=== PATIENT | male | born 1970 | race Caucasian/White ===

== ENCOUNTER 2018-01-26 15:50 | Emergency (ER) | payer BC ==
[2018-01-26 16:09] VITALS: BP 129/77
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
--- NOTE | 2018-01-26 16:43 | RAD ---
Indication: LEFT anterior rib pain post fall today. Comparison: No relevant prior exams available on the [facility] [place] for [place]. Technique: Dual energy PA chest and 3 view dedicated LEFT unilateral rib series. Report: LEFT anterior inferior skin marker noted indicating the site of clinical concern. No LEFT rib fracture, pulmonary contusion, pleural effusion, or pneumothorax. The heart, pulmonary vasculature, and mediastinal contours are unremarkable. IMPRESSION: #. Negative LEFT rib series.
== END 2018-01-26 16:58 | disposition home or self-care (01) ==
LOC: UCCORT 15:50
DX: S20.212A Contusion of left front wall of thorax, initial encounter (principal); Z91.018 Allergy to other foods; V18.2XXA Unspecified pedal cyclist injured in noncollision transport accident in nontraffic accident, initial encounter; Y92.9 Unspecified place or not applicable
CPT/HCPCS: 99201; G0463